=== PATIENT | male | born 1965 | race African-American/Black ===

== ENCOUNTER 2020-07-27 00:11 | Emergency (ER) | payer OTHER, SELFPAY ==
--- NOTE | ~2020-07-27 | CT_ITS ---
EXAMINATION: CT knee RT wo con DATE: 07/27/2020 02:01 INDICATION: Fall with medial right knee pain and abnormal x-ray with possible fracture. TECHNIQUE: High resolution computed tomography (CT) of the right knee was performed without intraveno us contrast. Additional sagittal and coronal reconstructions were performed. Automated exposure contr ol and iterative reconstruction technique were employed. The dose-length product was 691.08 mGy-cm. COMPARISON: None FINDINGS: Old fracture deformities at the proximal right tibial and fibular diaphyses which have healed with mi ld varus angulation. No acute fracture. Mild lateral patellar tilt and subluxation with mild joint sp cristo narrowing at the lateral aspect of the patellofemoral compartment. There is also mild joint space narrowing in the medial compartment although joint space narrowing can be underestimated on nonweigh tbearing imaging. Small right knee joint effusion. Soft tissues are unremarkable. IMPRESSION: 1. Small right knee joint effusion. No acute fracture. 2. At least mild osteoarthritis in the medial and patellofemoral compartments. Reviewed, dictated and finalized at location A.
--- NOTE | ~2020-07-27 | XR_ITS ---
EXAMINATION: XR knee RT min 4V DATE: 07/27/2020 01:13 INDICATION: Medial right knee pain post fall TECHNIQUE: Anteroposterior, 2 oblique and crosstable lateral views of the right knee were obtained COMPARISON: None. FINDINGS: Old healed fracture deformities at the proximal right tibial and fibular diaphysis which have healed with mild varus angulation. No acute fractures. Joint spaces appear relatively preserved on nonweight bearing imaging. Tiny marginal osteophytes along the patella and medial and lateral tibial plateaus. Very small right knee joint effusion. IMPRESSION: 1. No acute osseous abnormality. Reviewed, dictated and finalized at location A.
[2020-07-27 00:18] VITALS: BP 144/84; PULSE 86; RESP 17; TEMP 36.7; O2SAT 97
--- NOTE | 2020-07-27 00:55 | ED.LOWEXIN ---
HPI - Extremity Injury (Lower) General Chief Complaint: Extremity Injury, Lower Stated Complaint: RIGHT KNEE INJURY Time Seen by Provider: 07/27/20 00:33 Source: patient Mode of arrival: ambulatory Limitations: no limitations History of Present Illness HPI Narrative: This is a 55 year old male who presents for evaluation of right knee pain. He states he noticed the pain on Saturday when he was jogging briefly. On Saturday, he did not noticed the pain at all, but this morning he work up with pain in his right medial knee. He has continued to have pain throughout the day while he was at work. Tonight he accidentally fell tonight, and his pain has gotten worse. His pain is worse with movement and walking. He took ibuprofen 800 mg hours ago and he states it has not improved his pain at all. He denies fever, chills, numbness, tingling , redness or swelling. He denies any previous knee injury. Over 30 years ago he did suffer a right midshaft tibia fracture. Related Data Home Medications Medication Instructions Recorded Confirmed loratadine [Claritin] 10 mg PO DAILY PRN 03/07/19 03/07/19 fluticasone propionate [Flonase 1 spray INTRANASAL DAILY 07/27/20 07/27/20 Allergy Relief] Allergies Allergy/AdvReac Type Severity Reaction Status Date / Time walnut Allergy Unknown Swelling Verified 07/27/20 00:13 of Lip/Tongue/Throat Pecan Allergy Unknown Swelling Uncoded 07/27/20 00:13 of Lip/Tongue/Throat Review of Systems Review of Systems: All systems reviewed & are unremarkable except as noted in HPI and below PMFSH Past Medical History Medical History (Updated 07/27/20 @ 02:46 by Marizol Swift MD) Obstructive sleep apnea Right upper extremity numbness Family History Family History (Updated 03/07/19 @ 21:20 by Brooklyn Velasco NP) Father CAD (coronary artery disease) Cancer antigen 125 (CA 125) elevation Social History Social History (Updated 03/07/19 @ 21:21 by Brooklyn Velasco NP) Social History: 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 He is a full code. His 5 children. 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 Smoking status: Former smoker Tobacco type: cigarettes Second hand tobacco smoke exposure: No Smoking end date: 02/27/18 Alcohol intake: never Substance use: never Additional living arrangements comments: shared and 3 children. The other 2 children are in college. 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 Gender identity (if verbalized by the patient): Male Spiritual care concerns: No Exam Const: General: no acute distress and alert Orientation/consciousness: patient oriented x3 Resp: Effort & Inspection: normal respiratory effort Skin: General skin exam: normal color Rashes: no rashes Neuro: General: patient oriented x3 and moves all extremities Extrem: General: no pedal edema Other: right knee- no redness, no increased swelling, no increase warmth, no tenderness; there is pain with flexion of knee; no right hip tenderness or pain no right ankle tenderness or pain Psych: Mental Status: mental status grossly normal Affect: normal affect Course Reevaluation(s) Reevaluation #1: I reviewed with patient that xray possibly shows fractures so I will order of CT of his right knee. He is agreeable Date: 07/27/20 Time: 01:33 Reevaluation #2: I have discussed with patient CT results. He has an effusion but he does not have large effusion or sign of septic joint requiring arthrocentesis. HE will continue to ice, rest, wear brace and follow up with primary care provider or orthopedic surgeon Date: 07/27/20 Time: 02:45 Vital Signs Vital signs: Vital Signs Temperature 98.0 F 07/27/20 00:18 Pulse Rate 86 07/27/20 00:18 Respiratory Rate 17 07/27/20 00:18 Blood Pressure 144/84 H 07/27/20 00:18 Pulse Oximetry 97 07/27/20 00:18 Temperature 98.0 F 07/27/20 00:18 Pulse Rate 78 07/27/20 03:14
[2020-07-27] MEDS: ACETAMINOPHEN 500 MG TABLET 1000 MG PO (02:03)
[2020-07-27] MEDS: traMADol HCL (*CRX) 50 MG TABLET PO (02:04)
[2020-07-27 03:14] VITALS: BP 138/82; PULSE 78; RESP 16; O2SAT 97
== END 2020-07-27 03:10 | disposition home or self-care (01) ==
PROVIDERS: Emergency Provider General Practice; PCP Internal Medicine
DX: M25.461 Effusion, right knee (principal); G47.30 Sleep apnea, unspecified
CPT/HCPCS: 73564; 73700; 99284; A9270

== ENCOUNTER 2020-08-25 20:21 | Emergency (ER) | payer OTHER, SELFPAY ==
--- NOTE | ~2020-08-25 | XR_ITS ---
EXAMINATION: XR hand RT 2V DATE: 08/25/2020 20:49 INDICATION: Right hand pain post injury TECHNIQUE: Posteroanterior and lateral views of the right hand were obtained. COMPARISON: None. FINDINGS: Extra-articular fracture at the distal neck of the right fourth metacarpal with approximately 35 degr ees palmar and radial angulation and 102 cortical widths palmar displacement. No other acute fracture s identified. Widening of the scapholunate interval consistent with scapholunate ligament tear. This is likely chronic given the likely secondary advanced osteoarthritis at the wrist joint with severe j oint space narrowing and remodeling and prominent subarticular cystic change at the distal ulna and l unate fossa of the distal radius. Additional mild polyarticular osteoarthritis at the radial aspect o f the carpus and multiple interphalangeal joints. IMPRESSION: 1. Extra articular fracture at the distal neck of the right fifth metacarpal. 2. 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 Reviewed, dictated and finalized at location A. IMPRESSION: 1. Extra articular fracture at the distal neck of the right fifth metacarpal. 2. 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
[2020-08-25 20:32] VITALS: BP 174/90; PULSE 100; RESP 18; TEMP 36.9; O2SAT 99
--- NOTE | 2020-08-25 21:49 | ED.UPPEXIN ---
HPI - Extremity Injury (Upper) General Chief Complaint: Extremity Injury, Upper Stated Complaint: R Hand Injury Time Seen by Provider: 08/25/20 20:40 Source: patient Mode of arrival: ambulatory Limitations: no limitations History of Present Illness HPI narrative: 55-year-old male He was working on his truck and his ratchet slipped off in his hand shot out in whacked on the block He has pain and tenderness mostly around the fourth MCP Related Data Home Medications Medication Instructions Recorded Confirmed loratadine [Claritin] 10 mg PO DAILY PRN 03/07/19 03/07/19 fluticasone propionate [Flonase 1 spray INTRANASAL DAILY 07/27/20 07/27/20 Allergy Relief] Allergies Allergy/AdvReac Type Severity Reaction Status Date / Time walnut Allergy Unknown Swelling Verified 08/25/20 20:35 of Lip/Tongue/Throat Pecan Allergy Unknown Swelling Uncoded 08/25/20 20:35 of Lip/Tongue/Throat Review of Systems Musculoskeletal: Musculoskeletal: Reports arthralgias and Reports joint swelling Neurologic: Denies focal weakness and Denies numbness PMFSH Past Medical History Medical History (Updated 08/25/20 @ 21:57 by Ambrocio Rosales MD) Obstructive sleep apnea Right upper extremity numbness Family History Family History (Updated 03/07/19 @ 21:20 by Brooklyn Velasco NP) Father CAD (coronary artery disease) Cancer antigen 125 (CA 125) elevation Social History Social History (Updated 03/07/19 @ 21:21 by Brooklyn Velasco NP) Social History: 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 He is a full code. His 5 children. 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 Smoking status: Former smoker Tobacco type: cigarettes Second hand tobacco smoke exposure: No Smoking end date: 02/27/18 Alcohol intake: never Substance use: never Additional living arrangements comments: shared and 3 children. The other 2 children are in college. 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 Gender identity (if verbalized by the patient): Male Spiritual care concerns: No Exam Const: General: no acute distress and alert Orientation/consciousness: patient oriented x3 Resp: Effort & Inspection: normal respiratory effort and not labored Neuro: General: patient oriented x3 Extrem: Other: Mildly swollen with local tenderness over the distal fourth metacarpal Course Vital Signs Vital signs: Vital Signs Temperature 36.9 C 08/25/20 20:32 Pulse Rate 100 08/25/20 20:32 Respiratory Rate 18 08/25/20 20:32 Blood Pressure 174/90 H 08/25/20 20:32 Pulse Oximetry 99 08/25/20 20:32 Temperature 36.9 C 08/25/20 20:32 Pulse Rate 100 08/25/20 20:32 Respiratory Rate 18 08/25/20 20:32 Blood Pressure 174/90 H 08/25/20 20:32 Pulse Oximetry 99 08/25/20 20:32 Discharge Plan Discharge Clinical Impression: Fracture of fourth metacarpal bone of right hand Patient Disposition: Home, Self-Care Condition: Stable Instructions: Hand Fracture (ED), Splint Care (ED) Prescriptions: No Action loratadine [Claritin] 10 mg Tablet 10 mg PO DAILY PRN (Reason: Allergy Symptoms) RF: 0 fluticasone propionate [Flonase Allergy Relief] 50 mcg/actuation Collison,Suspension 1 spray INTRANASAL DAILY RF: 0 meloxicam [Mobic] 15 mg tablet 15 mg PO DAILY Qty: 14 RF: 0 tramadol 50 mg tablet 50 mg PO Q6H PRN (Reason: pain) Qty: 10 RF: 0 Follow-up/Referrals: Tyler,MD Villeda ([place]) [Primary Care Provider] - Nick Wei MD [Physician] - (Call tomorrow to schedule a follow-up appointment; there is a good chance he will need a cast on this)
--- NOTE | 2020-08-25 21:53 | PC.NURSE ---
splint applied to right hand. good pms before and after application
[2020-08-25 22:32] VITALS: BP 130/72; PULSE 80; RESP 18; O2SAT 99
== END 2020-08-25 22:34 | disposition home or self-care (01) ==
PROVIDERS: Emergency Provider Emergency Medicine; PCP Internal Medicine
DX: S62.334A Displaced fracture of neck of fourth metacarpal bone, right hand, initial encounter for closed fracture (principal); G47.33 Obstructive sleep apnea (adult) (pediatric); Z87.891 Personal history of nicotine dependence; M19.041 Primary osteoarthritis, right hand; M19.031 Primary osteoarthritis, right wrist; W22.8XXA Striking against or struck by other objects, initial encounter
CPT/HCPCS: 29125; 73120; 99284